=== PATIENT | female | born 1935 | race Caucasian/White ===

== ENCOUNTER 2018-03-07 14:15 | Emergency (ER) | payer MEDICARE, BC ==
[2018-03-07 14:40] VITALS: BP 133/56
--- NOTE | 2018-03-07 15:11 | UC ---
Complaint Female HPI - HPI Summary HPI Summary: Patient presented complaining of vaginal bleeding and passing clot. She states that this actually began on and Thursday at the end of this past week when she started to notice some pink on the toilet tissue. Yesterday, she states that she passed a clot the size of a quarter and then started to have red vaginal bleeding. Since then, she has had ongoing vaginal bleeding. She denies feeling weak or lightheaded she is not having any chest pain or short of breath she is denying any abdominal pain. She does however note that she is on Xarelto. She started Xarelto about 2 weeks ago for a pulmonary embolus. She states that since then ,she has noticed a fairly large number of bruises to both arms. She denies any black or bloody or tarry bowel movements she denies any blood in her urine and she offers no other complaints. - History Of Current Complaint Chief Complaint: [facility] Stated Complaint: PERSONAL Time Seen by Provider: 03/07/18 14:59 Hx Obtained From: Patient Hx Last Menstrual Period: n/a Onset/Duration: Gradual Onset Timing: Constant Pain Intensity: 0 Aggravating Factor(s): Nothing Alleviating Factor(s): Nothing Associated Signs And Symptoms: Positive: Vaginal Bleeding/Discharge - Allergies/Home Medications Allergies/Adverse Reactions: Allergies Allergy/AdvReac Type Severity Reaction Status Date / Time codeine Allergy Itching Verified 03/07/18 14:32 and Swelling Corticosteroids Allergy Unknown Verified 03/07/18 14:32 (Glucocorticoids) Reaction Details Penicillins Allergy Itching Verified 03/07/18 14:32 and Swelling Home Medications: Home Medications Acetaminophen [Acetaminophen Extra Strength] 1,000 mg PO Q6H PRN 03/07/18 [ History Confirmed 03/07/18] Candesartan (NF) [Atacand (NF)] 16 mg PO DAILY 03/07/18 [History Confirmed 03/07] Carvedilol TAB* [Coreg TAB*] 6.25 mg PO BID 03/07/18 [History Confirmed 03/07/18 ] Latanoprost 0.005%* [Xalatan 0.005%*] 1 drop BOTH EYES QPM 03/07/18 [History Confirmed 03/07/18] Rivaroxaban TAB(*) [Xarelto 10 mg (*)] 10 mg PO DAILY 03/07/18 [History Confirmed 03/07/18] Venlafaxine EXT RELEASE CAP* [Effexor Xr CAP*] 37.5 mg PO DAILY 03/07/18 [ History Confirmed 03/07/18] PMH/Surg Hx/FS Hx/Imm Hx - Additional Past Medical History Additional PMH: amyloidosis, RA, PE, borderline glaucoma Cardiovascular History: Hypertension - Surgical History Surgical History: Yes Surgery Procedure, Year, and Place: b/l hips, right elbow, cataracts - Family History Known Family History: Positive: Hypertension Negative: Cardiac Disease - Social History Occupation: Retired Lives: Alone Alcohol Use: Occasionally Substance Use Type: None Smoking Status (MU): Former Smoker When Did the Patient Quit Smoking/Using Tobacco: 1968 - Immunization History Vaccination Up to Date: Yes Review of Systems Constitutional: Negative Skin: Bruising Eyes: Negative ENT: Negative Respiratory: Negative Cardiovascular: Negative Gastrointestinal: Negative Genitourinary: Abnormal Bleeding Motor: Negative Neurovascular: Negative Musculoskeletal: Arthralgia - RA Neurological: Negative Psychological: Negative All Other Systems Reviewed And Are Negative: Yes Physical Exam Triage Information Reviewed: Yes Appearance: Well-Appearing Vital Signs: Initial Vital Signs Temp 98.4 F 03/07/18 14:29 Pulse 76 03/07/18 14:29 Resp 16 03/07/18 14:29 BP 133/56 03/07/18 14:29 Pulse Ox 96 03/07/18 14:29 Vital Signs Reviewed: Yes Eyes: Positive: Conjunctiva Clear ENT: Positive: Normal ENT inspection Neck: Positive: Supple, Nontender, No Lymphadenopathy Respiratory: Positive: Lungs clear, Normal breath sounds Cardiovascular: Positive: RRR, No Murmur Abdomen Description: Positive: Nontender, No Organomegaly, Soft. Negative: Distended, Guarding Bowel Sounds: Positive: Present Pelvic Exam: Positive: Other - upon standing to transfer to table, blood and 2 clots dripped on the floor. Pt lying on R side with bent knees and nurse assist , tissue spread and no rectal bleeding; however, blood actively dripping from vagina and another clot came out. area cleaned with wash cloths but ogoing dripping of blood continued. attempted speculum exam but unable to introduce due to discomfort. no overt source of bleeding seen. Neurological: Positive: Alert Psychological: Positive: Age Appropriate Behavior Skin Exam: Normal, Other - hematoma L hip s/p bone biopsy and scattered bruises to both arms(purple). Complaint Female Dx - Course Course Of Treatment: pt is actively bleeding from her vagina plus is bruising. she is also on xarelto thus ER transfer needed. Pt refusing EMS despite risk of worsening, disability, . She is a&ox3 thus I must respect her wish to have a friend drive her to the ER. [facility] called and report given to Dr Maharaj. advised pt on xarelto with excessive bruising and active vaginal bleeding plus passing clots. - Differential Dx/Diagnosis Provider Diagnoses: ACTIVE VAGINAL BLEEDING. SPONTANEOUS BRUISING. POSSIBLE XARELTO COMPLICATION Discharge - Sign-Out/Discharge Documenting (check all that apply): Discharge/Admit/Transfer - Discharge Plan Condition: Stable Disposition: TRANS HIGHER LVL OF CARE FAC Referrals: Jose Alfredo Guzmán MD [Primary Care Provider] - Additional Instructions: LEAVE HERE AND GO DIRECTLY TO THE [facility] - Billing Disposition and Condition Condition: STABLE Disposition: Trans Higher Lvl of Care Fac
== END 2018-03-07 15:45 | disposition short-term general hospital (02) ==
LOC: UCCORT 14:15
DX: N93.9 Abnormal uterine and vaginal bleeding, unspecified (principal); R23.3 Spontaneous ecchymoses; Z79.01 Long term (current) use of anticoagulants; Z88.5 Allergy status to narcotic agent; Z88.0 Allergy status to penicillin; Z88.8 Allergy status to other drugs, medicaments and biological substances; I10 Essential (primary) hypertension; Z87.891 Personal history of nicotine dependence
CPT/HCPCS: 99212; G0463